=== PATIENT | male | born 1950 | race Caucasian/White ===

== ENCOUNTER → 2025-03-30 15:46 | Outpatient (CLI) | payer MEDICARE, OTHER, SELFPAY ==
--- NOTE | 2025-03-30 15:49 | DI.MRI.S_ITS ---
PROCEDURE: MR LUMBAR SPINE WO CON INDICATIONS: Low back pain w rt lower leg radiculopathy TECHNIQUE: Noncontrast sagittal T1 spin echo and T2 fast echo, sagittal STIR, and T2 fast spin echo through the lumbar spine. In cases with scoliosis, additional coronal T2 fast spin echo may be performed. COMPARISON: None. FINDINGS: Image quality: Excellent. Alignment and Curvature: There is normal bony alignment. Transverse oriented low T1 high T2/stir signal in the inferior half of L1 vertebral body more than expected for degenerative changes and subtle compression fracture or other process could be considered. Minimal less than 10 percent loss of height of the inferior endplate of L1. Discitis/osteomyelitis could be considered less likely. Otherwise the remaining vertebral body heights, alignment within normal limits. Multilevel degenerative changes are noted with disc desiccation, disc height loss, broad-based posterior or circumferential disc bulges, facet osseous and ligamentous hypertrophic changes most notably at L2-3 with [id number] bilateral neural foraminal narrowing and L4-5 with moderate bilateral neural foraminal narrowing and moderate central stenosis. Moderate bilateral neural foraminal narrowing at L5- S1 as well. IMPRESSION: Signal changes in the inferior aspect of L1 vertebral body suspicious for subtle compression fracture less than 10 percent loss of height or other cause as discussed above. Multilevel degenerative changes most notably at L2-3, L4-5 and L5-S1. Dictated by: Sagar King M.D. on 04/02/2025 at 9:36 Approved by: Sagar King M.D. on 04/02/2025 at 10:01
== END ==
LOC: MRI 15:47
PROVIDERS: PCP Family Medicine; Referring Provider Family Medicine; Visit Provider Family Medicine
DX: M47.816 Spondylosis without myelopathy or radiculopathy, lumbar region (principal); M47.817 Spondylosis without myelopathy or radiculopathy, lumbosacral region; M54.50 Low back pain, unspecified
CPT/HCPCS: 72148

== ENCOUNTER → 2025-04-09 09:10 | Outpatient (CLI) | payer MEDICARE, OTHER, SELFPAY ==
[2025-04-09 09:55] LABS: Add Manual Diff / Slide Review NO; Basophils Absolute Auto 0 /uL (0-100); Basophils Percent Auto 0.5 % (0-2); Eosinophils Absolute Auto 100 /uL (0-450); Eosinophils Percent Auto 2.1 % (2-4); Hematocrit 49.7 % (41-53); Hemoglobin 16.9 g/dL (13.5-17.5); Lymphocytes Absolute Auto 1300 /uL (1100-4500); Lymphocytes Percent Auto 20.2 % (25-40); Mean Corpuscular Hemoglobin 30.3 PG (26-34); Mean Corpuscular Volume 89.1 fL (80-100); Monocytes Absolute Auto 600 /uL (0-900); Monocytes Percent Auto 9.1 % (3-14); Neutrophils Absolute Auto 4600 /uL (1500-7000); Neutrophils Percent Auto 68.1 % (50-75); Platelet Count 240 X10^3/uL (150-400); Red Blood Cell Count 5.57 X10^6/uL (4.5-5.9); Red Cell Distribution Width 12.7 % (11.6-14.8); White Blood Cell Count 6.7 X10^3/uL (4.5-11.0)
[2025-04-09 10:09] LABS: Erythrocyte Sedimentation Rate 1 MM/HR (0-15)
[2025-04-09 10:25] LABS: Alanine Aminotransferase 34 IU/L (<50); Albumin 4.7 g/dL (3.5-5.0); Albumin Globulin Ratio 1.6 (1.0-2.8); Alkaline Phosphatase 137 U/L (38-126); Aspartate Aminotransferase 25 IU/L (17-59); Bilirubin Total 0.4 mg/dL (0.2-1.3); Blood Urea Nitrogen 20 mg/dL (9-20); C-Reactive Protein Quant < 0.5 mg/dL (<1.0); Calcium 9.8 mg/dL (8.4-10.2); Carbon Dioxide 31 mmol/L (22-32); Chloride 99 mmol/L (98-107); Estimated Glomerular Filt Rate > 60 mL/min (>60); Glucose 93 mg/dL (70-99); HEMOLYSIS < 15 (0-50); Potassium 4.8 mmol/L (3.4-5.1); Sodium 138 mmol/L (137-145); Total Protein 7.7 g/dL (6.3-8.2)
== END ==
PROVIDERS: PCP Family Medicine; Referring Provider Family Medicine; Visit Provider Family Medicine
DX: M54.50 Low back pain, unspecified (principal); M81.0 Age-related osteoporosis without current pathological fracture
CPT/HCPCS: 36415; 80053; 85025; 85651; 86140

== ENCOUNTER → 2025-04-13 09:28 | Outpatient (CLI) | payer MEDICARE, OTHER, SELFPAY ==
--- NOTE | 2025-04-13 09:29 | DI.RAD.S_ITS ---
PROCEDURE: XR DEXA AXIAL SKELETON INDICATIONS: compression fx L1 COMPARISON: None. FINDINGS: Lumbar Spine: Bone mineral density 1.081 g/cm2, T score 0.3, normal. Left Femoral Neck: Bone mineral density 0.760 g/cm2, T score -0.8. Left Hip: Bone mineral density is 0.930 g/cm2, T score -0.1, normal. Fracture Risk Calculation (when applicable): 10-year fracture risk of a major osteoporotic fracture 9.1 percent and of a hip fracture 1.9 percent. (T score greater or equal to -1.0 to: NORMAL) (T score from -1.1 to -2.4: OSTEOPENIA) (T score less than or equal to -2.5: OSTEOPOROSIS) IMPRESSION: Normal Follow-up guidelines as follows: Osteoporosis: Consider a repeat DEXA and Vertebral Fracture Assessment (VFA) exam in 2 years or sooner if medically necessary, to reassess this patient's status. Osteopenia: Consider a repeat DEXA in 2-3 years to reassess this patient's status, or if there is a new clinical indication. Normal: Consider a repeat DEXA in 5 years or sooner, or if there is a new clinical indication. All treatment decisions require clinical judgment and consideration of individual patient factors, including patient preferences, comorbidities, previous drug use, risk factors not captured in the FRAX model (e.g., frailty, falls, vitamin D deficiency, increased bone turnover, interval significant decline in bone density ) and possible under- or over-estimation of fracture risk by FRAX. In addition, the NOF Guide recommends that FDA-approved medical therapies be considered in postmenopausal women and men age >= 50 years with a: * Hip or vertebral (clinical or morphometric) fracture * T-score of <=-2.5 at the spine or hip * Ten-year fracture probability by FRAX of >= 3% for hip fracture or >=20% for major osteoporotic fracture. Approved by: Brent Herrera M.D. on 04/13/2025 at 18:06
== END ==
PROVIDERS: PCP Family Medicine; Referring Provider Family Medicine; Visit Provider Family Medicine
DX: M81.0 Age-related osteoporosis without current pathological fracture (principal); M54.50 Low back pain, unspecified
CPT/HCPCS: 77080

== ENCOUNTER 2025-05-17 13:52 | Emergency (ER) | payer MEDICARE, OTHER, SELFPAY ==
[2025-05-17 14:11] VITALS: BP 135/75; PULSE 65; RESP 20; TEMP 36.6; O2SAT 96; BMI 25.7
--- NOTE | 2025-05-17 14:16 | DI.RAD.S_ITS ---
PROCEDURE: XR ANKLE LT MIN 3V INDICATIONS: glf TECHNIQUE: 3 views of the ankle were acquired. COMPARISON: None. FINDINGS: Bones: No fractures or dislocations. Ankle mortise is normally aligned. Osteoarthritic changes are noted throughout midfoot and hindfoot most notably involving talonavicular joint. No suspicious bony lesions. Soft tissues: Mild ankle soft tissue swelling is seen. IMPRESSION: No acute left ankle fracture or dislocation. Mild ankle soft tissue swelling. Midfoot and hindfoot joint osteoarthritis. Dictated by: Rj Gutierrez M.D. on 05/17/2025 at 15:10 Approved by: Rj Gutierrez M.D. on 05/17/2025 at 15:10
--- NOTE | 2025-05-17 15:37 | ED_ITS ---
HPI - Extremity Injury (Lower) <Faith Barraza PA-C - Last Filed: 05/17/25 17:41> General Chief Complaint: Extremity Injury, Lower Stated Complaint: Left ankle pain Time Seen by Provider: 05/17/25 13:57 Mode of arrival: Ambulatory History of Present Illness HPI Narrative: Mr. Yeh is a very pleasant 74-year-old male with no significant past medical history presents to the emergency department for left ankle injury that occurred prior to arrival. He is here with his . Patient states that he was working on a home bathroom/shower when he stepped on an uneven surface and rolled his left ankle. He developed immediate pain and swelling on the lateral aspect of the ankle. He has been able to walk but with difficulty. No open wounds. No recent injuries to the ankle, states that he did injure it in the . No numbness tingling or weakness. He did slowly fall to the ground did not injure anything else. No head trauma. He took naproxen and pregabalin for the pain. Related Data Home Medications ?Medication ?Instructions ?Recorded ?Confirmed coal tar 1 % shampoo topical psoriasis 08/04/22 0 04/09/25 fluticasone propionate 50 intranasal Seasonal Allergie s 08/04/22 04/09/25 mcg/actuation nasal spray,suspension potassium citrate 10 mEq (1,080 PO Kidney stone preven tion 08/04/22 04/09/25 mg) tablet,extended release salicylic acid 2 % shampoo topical psoriasis 08/04/22 04/09/25 triamcinolone acetonide 0.1 % applic topical psoriasis 08/04/22 04/09/25 topical cream calcipotriene 0.005 % topical 1 applic topical DAILY 0 03/22/25 04/09/25 ointment Previous Rx's ?Medication ?Instructions ?Recorded cyclobenzaprine 5 mg tablet 5 mg PO Q8H #30 tabs 03/22 hydrocodone 5 mg-acetaminophen 325 1 tab PO Q6H PRN pa in #40 tabs 04/09/25 mg tablet naproxen 500 mg tablet 500 mg PO BID PRN pain #60 t abs 04/09/25 pregabalin 75 mg capsule (Lyrica) 75 mg PO BID PRN jase n #60 caps 04/09/25 Allergies Allergy/AdvReac Type Severity Reaction Status Date / Time IVP sensitivity AdvReac Mild Uncoded 05/17/25 14:12 Review of Systems <Faith Barraza PA-C - Last Filed: 05/17/25 17:41> Review of Systems ROS Unobtainable: All systems reviewed & are unremarkable except as noted in HPI and below Patient History <Faith Barraza PA-C - Last Filed: 05/17/25 17:41> Medical History Compression fracture of L1 lumbar vertebra Allergies (~1959) Psoriasis (~2006) Eczema (~2006) Shoulder pain (~2002) Foot pain (~2006) Kidney stones (~1981) Family History Father Cancer Mother Stroke COPD (chronic obstructive pulmonary disease) Hypertension Social History marital status: pets and animals: Yes Smoking Status: Never smoker alcohol intake: current daily servings fruits/ve-4 Type(s) of exercise: walking and additional (Golf, skiing) Smoking Status: Never smoker Exam <Faith Barraza PA-C - Last Filed: 05/17/25 17:41> Narrative Exam Narrative: GENERAL: 74 year old patient appears stated age. Well-developed patient, in no acute distress. HEAD: Atraumatic. Normocephalic. NECK: Trachea midline. Cervical ROM intact. CARDIOVASCULAR: Regular rate RESPIRATORY: ?Nonlabored respirations. ?Speaking in clear, full sentences. ?? EXTREMITIES: Patient has focal edema overlying lateral left ankle including lateral malleolus and extending onto lateral left foot. There is no erythema or ecchymoses. Patient has strong DP and PT pulses bilaterally, brisk capillary refill in the toes and sensation intact to light touch on both the plantar and dorsal aspect of the feet. No medial malleolus tenderness on the left. No left knee tenderness, left mora tenderness or focal left foot tenderness. NEURO: AOx3. ?Clear speech. ?Moves all 4 extremities appropriately with excption of L ankle. SKIN: No rash or erythema of visible areas. No open wounds or ecchymosis. Initial Vital Signs Initial Vital Signs: Vital Signs Temperature 98 F 05/17/25 14:11 Pulse Rate 65 05/17/25 14:11 Respiratory Rate 20 05/17/25 14:11 Blood Pressure 135/75 05/17/25 14:11 Pulse Oximetry 96 05/17/25 14:11 Oxygen Delivery Method Room Air 05/17/25 14:11 <Thang Hall MD - Last Filed: 05/17/25 19:22> Initial Vital Signs Initial Vital Signs: Vital Signs Temperature 98 F 05/17/25 14:11 Pulse Rate 65 05/17/25 14:11 Respiratory Rate 20 05/17/25 14:11 Blood Pressure 135/75 05/17/25 14:11 Pulse Oximetry 96 05/17/25 14:11 Oxygen Delivery Method Room Air 05/17/25 14:11 Course <Faith Barraza PA-C - Last Filed: 05/17/25 17:41> Orders Ordered: ED Orders 05/17/25 14:16 XR ankle LT min 3V Stat Vital Signs Vital signs: Vital Signs - 8 hr 05/17/25 14:11 05/17/25 15:53 Temperature 98 F Pulse Rate 65 64 Respiratory Rate 20 16 Blood Pressure 135/75 139/79 Pulse Oximetry 96 98 Oxygen Delivery Method Room Air Room Air <Thang Hall MD - Last Filed: 05/17/25 19:22> Orders Ordered: ED Orders 05/17/25 14:16 XR ankle LT min 3V Stat Vital Signs Vital signs: Vital Signs - 8 hr 05/17/25 14:11 05/17/25 15:53 Temperature 98 F Pulse Rate 65 64 Respiratory Rate 20 16 Blood Pressure 135/75 139/79 Pulse Oximetry 96 98 Oxygen Delivery Method Room Air Room Air MDM - Extremity Injury (Lower) <Faith Barraza PA-C - Last Filed: 05/17/25 17:41> Medical Records Attestation: I reviewed the patient's medical records. Imaging Data Left Ankle XR: Radiologist's Impression: PROCEDURE: XR ANKLE LT MIN 3V INDICATIONS: glf TECHNIQUE: 3 views of the ankle were acquired. COMPARISON: None. FINDINGS: Bones: No fractures or dislocations. Ankle mortise is normally aligned. Osteoarthritic changes are noted throughout midfoot and hindfoot most notably involving talonavicular joint. No suspicious bony lesions. Soft tissues: Mild ankle soft tissue swelling is seen. IMPRESSION: No acute left ankle fracture or dislocation. Mild ankle soft tissue swelling. Midfoot and hindfoot joint osteoarthritis. Dictated by: Rj Gutierrez M.D. on 05/17/2025 at 15:10 Approved by: Rj Gutierrze M.D. on 05/17/2025 at 15:10 [facility] Narrative Medical decision making narrative: 74-year-old male with no significant past medical history presents to the emergency department for left ankle injury that occurred prior to arrival. Differential diagnosis includes but is not limited to left ankle sprain, strain, fracture, dislocation, etc. On exam patient is in no acute distress, nontoxic appearing, vital signs appropriate. He is focal swelling over the lateral left ankle with no gross bony deformities, left foot is neurovascularly intact, no open wounds. We will obtain left foot x-ray. He declines need for pain medication. Left ankle x-ray reveals no acute left ankle fracture dislocation. There was mild ankle soft tissue swelling. Midfoot and hindfoot joint osteoarthritis. Printed and discussed results with the patient. After shared decision-making, I do believe he would benefit best from an orthopedic walking boot. Terence wrap applied left ankle and he was fitted for a boot and able to ambulate in the ED. Discussed supportive care, rice therapy, ibuprofen/Tylenol for pain, follow up PCP/ortho. Discussed ED return precautions. Patient and his verbalized understanding of all information and are agreeable to plan. He is stable for discharge home. Discharge Plan Departure Patient Disposition: Home Clinical Impression: Sprain of ankle, left Qualifiers: Encounter type: initial encounter Involved ligament of ankle: unspecified ligament Qualified Code(s): S93.402A - Sprain of unspecified ligament of left ankle, initial encounter Instructions: DI for Ankle Sprain Activity Restrictions/Additional Instructions: Dear Rao, Thank you for coming to the emergency department. Today you were evaluated for left ankle injury. Your x-ray did not reveal any broken bones or dislocations. At this time your symptoms are consistent with a lateral left ankle sprain/injury to the ligaments. Please wear the orthopedic boot for as long as your symptoms persist, once your pain is resolved you may stop wearing the boot and start wearing an Terence wrap for support. Please follow up with your primary care doctor within the next week for further evaluation, they may refer you to orthopedics if needed for further treatment. Ankle sprains often take 3-6 weeks to heal. Please use RICE therapy for your pain in addition to ibuprofen/acetaminophen. Rest the painful area. Ice the area of pain/swelling for at least 15 minutes, 4x a day. Compress the area of swelling using a brace, wrap, or splint if applied. Elevate the painful or swollen extremity by supporting it above the level of the heart with pillows when sitting or laying. Please take Ibuprofen (Motrin/Advil) or Acetaminophen (Tylenol) for pain. These are available over the counter. You may take Ibuprofen 600 mg every 8 hours with food for pain. You may also take Acetaminophen 650 mg every 4-6 hours for pain. Do not exceed 3000 mg of Tylenol a day as this can cause liver damage. Do not drink alcohol with either of these medications. Please follow up with your primary care doctor within the next 2-3 days for ER follow-up. (If you do not have a PCP you can call [phone]. ?to schedule an appointment with an [facility] Primary Care Provider) IF YOU DEVELOP ANY NEW OR WORSENING SYMPTOMS, RETURN TO THE ER! Please read the attached instructions, they highlight more specific treatments and interventions for you at home. Thank you for letting me participate in your care, Faith Barraza PA-C Prescriptions: No Action triamcinolone acetonide 0.1 % cream topical salicylic acid 2 % shampoo topical potassium citrate 10 mEq (1,080 mg) tablet extended release PO fluticasone propionate 50 mcg/actuation spray,suspension intranasal coal tar 1 % shampoo topical naproxen 500 mg tablet 500 mg PO BID PRN (Reason: pain) Qty: 60 11RF Rx Instructions: with food pregabalin [Lyrica] 75 mg capsule 75 mg PO BID PRN (Reason: pain) Qty: 60 5RF hydrocodone-acetaminophen 5-325 mg tablet 1 tab PO Q6H PRN (Reason: pain) Qty: 40 0RF calcipotriene 0.005 % ointment 1 applic topical DAILY Rx Instructions: rub in gently and completely cyclobenzaprine 5 mg tablet 5 mg PO Q8H Qty: 30 3RF Referrals: Lashay Bermudez DO [Physician, Orthopedic Surgery] Referral Note: L ankle sprain Salari,Ali, DO [Primary Care Provider, Family Practice] Stand Alone Forms: Patient Portal/API ED Sign-out <Thang Hall MD - Last Filed: 05/17/25 19:22> Cosign ED Attending Carloz Attestation: I was immediately available in the department for consultation. ?This documentation has been reviewed and I agree with assessment and plan. Supervised by Thang Hall MD
--- NOTE | 2025-05-17 15:52 | PC.NURSE ---
Pt states he stepped down from shower that he was remodeling when he twisted his ankle. profusion in place. Pt able to walk with some pain
[2025-05-17 15:53] VITALS: BP 139/79; PULSE 64; RESP 16; O2SAT 98
== END 2025-05-17 15:53 | disposition home or self-care (01) ==
PROVIDERS: Emergency Provider Physician Assistant; PCP Family Medicine
DX: S93.402A Sprain of unspecified ligament of left ankle, initial encounter (principal); X50.1XXA Overexertion from prolonged static or awkward postures, initial encounter
CPT/HCPCS: 73610; 99281; 99283

== ENCOUNTER → 2025-05-18 13:26 | Outpatient (CLI) | payer MEDICARE, OTHER, SELFPAY ==
--- NOTE | 2025-05-18 13:27 | DI.RAD.S_ITS ---
PROCEDURE: XR LUMBAR SPINE 2-3V INDICATIONS: BACK PAIN TECHNIQUE: 3 views of the lumbar spine were acquired. COMPARISON: [facility], CT, CT ABDOMEN HEPATIC/ADRENAL PROTOCOL, 10/03/2024, 9:54. [facility], MR, MR LUMBAR SPINE WO CON, 03/30/2025, 16:20. FINDINGS: Bones: Minimal anterior wedge deformity is seen of the L1 level, which is unchanged compared to the recent prior MRI. There is moderate disc space narrowing seen at L1-L2. The disc heights otherwise appear well-preserved. 5 [id number] vertebrae are present. There is minimal anterolisthesis seen at the L5-S1 level. No suspicious bony lesions. Soft tissues: Overlying bowel gas pattern is normal. No suspicious soft tissue calcifications. IMPRESSION: Stable minimal anterior wedge deformity seen of L1. Focal L1-L2 degenerative change. Minimal L5-S1 anterolisthesis. Dictated by: Dylon Alegria M.D. on 05/18/2025 at 12:43 Approved by: Dylon Alegria M.D. on 05/18/2025 at 12:46
== END ==
LOC: RAD 13:27
PROVIDERS: PCP Family Medicine; Referring Provider Family Medicine; Visit Provider Family Medicine
DX: S32.010A Wedge compression fracture of first lumbar vertebra, initial encounter for closed fracture (principal); M54.9 Dorsalgia, unspecified; M51.369 Other intervertebral disc degeneration, lumbar region without mention of lumbar back pain or lower extremity pain; M43.17 Spondylolisthesis, lumbosacral region
CPT/HCPCS: 72100